=== PATIENT | female | born 1960 | race American Indian/Alaskan Native ===

== ENCOUNTER 2016-07-14 09:02 | Day surgery (SDC) | payer MEDICARE ==
[2016-07-14 10:20] LABS: INR 1.03 (0.87-1.13)
[2016-07-14 10:21] LABS: Partial Thromboplastin Time 29.2 Sec. (24.2-36.6)
[2016-07-14] MEDS ORDERED: PERCOCET 5/325 PO ONE (10:50)
--- NOTE | 2016-07-14 12:38 | History and Physical Report ---
History of Present Illness Date of examination: 07/14/16 Chief complaint: chronic low back and rt. leg pain Medications and Allergies Allergies Allergy/AdvReac Type Severity Reaction Status Date / Time No Known Allergies Allergy Verified 07/14/16 09:30 Home Medications Medication Instructions Recorded Confirmed Last Taken Type Benazepril/Hydrochlorothiazide 12.5 - 20 mg PO QDAY 07/14/16 07/14/16 07/13/16 History [Benazepril-Hctz 20-25 mg] Diazepam Tab [Valium] 5 mg PO QDAY PRN 07/14/16 07/14/16 07/12/16 History Gabapentin [Neurontin] 300 mg PO BID 07/14/16 07/14/16 07/13/16 History HYDROcodone/APAP 7.5-325 [[place] 7.5 - 325 mg PO Q6HR PRN 07/14/16 07/14/1607/13 History 7.5-325 mg TAB] Naproxen [Naprosyn] 500 mg PO BID 07/14/16 07/14/16 07/13/16 History Omeprazole [Omeprazole] 20 mg pe PO QDAY 07/14/16 07/14/16 07/13/16 History Pravastatin Sodium [Pravastatin] 20 mg PO QDAY 07/14/16 07/14/16 07/13/16 History Exam Vital Signs Temp Pulse Resp BP Pulse Ox 98.7 F 95 H 16 146/102 100 07/14/16 09:54 07/14/16 09:54 07/14/16 09:54 07/14/16 09:54 07/14/16 09:54
--- NOTE | 2016-07-14 12:40 | Procedure Note ---
Date of procedure: 07/14/16 Pre-op diagnosis: lumbar disc Post-op diagnosis: same Procedure: lumbar myelogram Findings: see report Anesthesia: local Surgeon: REA COMER Estimated blood loss: none Pathology: none Specimen disposition: to lab Condition: stable Disposition: same day
[2016-07-14 14:45] VITALS: BP 118/78
--- NOTE | 2016-07-14 16:00 | Cat Scan Report ---
LUMBAR MYELOGRAM AND LUMBAR CT: The patient presents with a history of chronic low back pain and predominantly right leg pain. The patient was placed prone on a fluoroscopic table. L4 was selected for approach. The skin was cleansed and 1% lidocaine used for local anesthesia. A 22-gauge needle was successfully placed into the thecal sac. Approximately 15 cc of Omnipaque 180 contrast was introduced without complication. Fluoroscopic imaging and overhead images demonstrated minimal extradural anterior deformities on the thecal sac at L3-4 and L5-S1. On the anterior and oblique fluoroscopic images, no extradural deformities are identified. No widening of the nerve root sleeves is identified. Following the myelogram, the patient underwent a CT scan from T12 through the sacrum. Coronal and sagittal reconstructed images are included. Mild degenerative apophyseal joint changes are identified bilaterally from T12-L3 and also at L5-S1. Severe apophyseal degenerative spurring and degenerative gas is identified in the joints bilaterally at L3-4 and L4-5. There is no obvious spinal or foraminal stenosis at any level. There is normal alignment of the vertebral bodies and good preservation of the vertebral height and disc height despite a small amount of degenerative gas in the L5-S1 disc space. There appears to be mild anterior and posterior bulging of the L5-S1 disc. There is a central posterior spur indenting the anterior thecal sac originating from the superior posterior margin of the sacrum. IMPRESSIONS: 1. 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 2. Degenerative spur and L5-S1 disc with mild bulging. 3. No foraminal or spinal stenosis identified.
== END 2016-07-14 14:10 | disposition home or self-care (01) ==
LOC: OPU 09:02
PROVIDERS: ATTEND Anesthesiology
DX: M51.37 Other intervertebral disc degeneration, lumbosacral region (principal)
CPT/HCPCS: 36415; 62304; 72132; 85610; 85730; Q9965